=== PATIENT | male | born 1990 | race Caucasian/White ===

== ENCOUNTER 2024-07-02 13:54 | Emergency (ER) | payer SELFPAY ==
[2024-07-02 14:03] VITALS: BP 141/94
--- NOTE | 2024-07-02 14:25 | EDRN ---
Received patient on stretcher. Patient stated that he got hit in the face by a large piece of concrete. +laceration to right eyebrow. +swelling and bruising. Denies LOC and dizziness. +tenderness right eyebrow.
--- NOTE | 2024-07-02 15:23 | ED.SKININJ ---
HPI-Injury
<Mara Coon, JEWELRY STORE MANAGER - Last Filed: 07/03/24 09:12>
General
Chief Complaint: Head Injury
Source: patient
Exam Limitations: none
Time Seen by Provider: 07/02/24 14:34
Nursing documentation reviewed up to this point in time: agreed with
History of Present Illness-Injury
Initial Injury comments:
34-year-old male with no significant past medical history presents with laceration to the right lateral eyebrow. 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 Someone was mowing high grass with a large lawnmower when a softball sized piece of
concrete flew out from the lawnmower striking him in the right upper orbital area. He had an workers compensation manager hard hat on with full face visor and ear protectors on, the impact pushed his hat right off of him. There was no loss of consciousness. Patient
denies eyeball injury, denies change in vision. He is unsure of his last tetanus immunization. He has pain around the area, no general headache. Denies nausea or vomiting.
Past History
<Mara Coon, JEWELRY STORE MANAGER - Last Filed: 07/03/24 09:12>
Past History
ED Past Medical History: None
ED Past Surgical History: Orthopedic (knee/meniscus)
Social History
Tobacco: Non-smoker
Alcohol: Occasional
Personal: Single
Living: with family
Employment: Employed
Review of Systems
<Mara Coon, JEWELRY STORE MANAGER - Last Filed: 07/03/24 09:12>
Review of Systems
Allergies reviewed?: Yes
All Other Systems: ROS reviewed and negative except as documented in HPI and ROS
Cardiac: Denies syncope
ABD/GI: Denies nausea or vomiting
Skin: Reports other (cut right outer eyebrow area)
Neurological: Reports headache (mild pain at the site, no general headache); Denies dizzy, weakness or numbness
Phy Exam
<Mara Coon JEWELRY STORE MANAGER - Last Filed: 07/03/24 09:12>
Physical Exam
Physical Exam:
GENERAL: No acute distress. A&Ox3.
CONSTITUTIONAL: Afebrile.
EYES: PERRL, EOMs intact., clear anterior chamber, good red reflex. conjunctivae normal, eyes clear, normal visual acuity to fingers 5 feet away. Mild to moderate lateral upper eyelid swelling. Tender upper lateral periorbital areas.
Neck: Supple
ENMT: moist mucus membranes, Pharynx nl
RESPIRATORY: Regular respirations, nonlabored, lungs clear.
CARDIOVASCULAR: Regular rate and rhythm, no murmurs, no rubs.
GI: Soft, nontender, normal BS
MUSCULOSKELETAL: Moves with ease. Well perfused.
SKIN: Warm, dry, pink
PSYCH: Normal mood and affect. Well kept, interactive and appropriate
NEUROLOGIC: Awake, alert and oriented. No focal neurological deficits. Ambulating well with steady gait.
Course
<Mara Coon, JEWELRY STORE MANAGER - Last Filed: 07/03/24 09:12>
Orders/Labs/Results
Orders:
Orders
07/02/24 15:29
CT Orbits W/o Iv Contrast Urgent
Comment:
Reason For Exam: R orbital trauma
Acetaminophen [Tylenol] 1,000 mg PO NOW STA
Lidocaine/Epinephrine/Tetracai [Let Topical Anesthetic Gel] 3 ml TOPICAL NOW STA
Tetanus/Diphth/Acelpertussis [Adacel] 0.5 ml IM .ONCE ONE
07/02/24 17:07
CT Head W/o Iv Contrast Urgent
Comment:
Reason For Exam: struck right orbit, ? abnormality seen on orbit ct
07/02/24 18:02
Cephalexin Monohydrate [Keflex] 500 mg PO NOW STA
Vital Signs
Initial and Last Documented VS:
Initial Vital Signs
Temp Pulse Resp BP Pulse Ox
98.3 F 64 18 141/94 98
07/02/24 14:03 07/02/24 14:03 07/02/24 14:03 07/02/24 14:03 07/02/24 14:03
Last Documented Vital Signs
Temp Pulse Resp BP Pulse Ox
98.3 F 60 18 136/86 100
07/02/24 14:03 07/02/24 21:05 07/02/24 21:05 07/02/24 21:05 07/02/24 21:05
General Magistrate consulted with Physician
General Magistrate consulted with physician?: Yes
Name of Physician Consulted: Yoli
<Rita Kent DO - Last Filed: 07/02/24 19:29>
Orders/Labs/Results
Orders:
Orders
07/02/24 15:29
CT Orbits W/o Iv Contrast Urgent
Comment:
Reason For Exam: R orbital trauma
Acetaminophen [Tylenol] 1,000 mg PO NOW STA
Lidocaine/Epinephrine/Tetracai [Let Topical Anesthetic Gel] 3 ml TOPICAL NOW STA
Tetanus/Diphth/Acelpertussis [Adacel] 0.5 ml IM .ONCE ONE
07/02/24 17:07
CT Head W/o Iv Contrast Urgent
Comment:
Reason For Exam: struck right orbit, ? abnormality seen on orbit ct
07/02/24 18:02
Cephalexin Monohydrate [Keflex] 500 mg PO NOW STA
Vital Signs
Initial and Last Documented VS:
Initial Vital Signs
Temp Pulse Resp BP Pulse Ox
98.3 F 64 18 141/94 98
07/02/24 14:03 07/02/24 14:03 07/02/24 14:03 07/02/24 14:03 07/02/24 14:03
Last Documented Vital Signs
Temp Pulse Resp BP Pulse Ox
98.3 F 60 18 136/86 100
07/02/24 14:03 07/02/24 21:05 07/02/24 21:05 07/02/24 21:05 07/02/24 21:05
<Mara Coon JEWELRY STORE MANAGER - Last Filed: 07/03/24 09:12>
MDM/Problems Addressed
Differential Diagnosis Includes:
orbital fracture
MDM/Problems Addressed:
34-year-old male with no significant past medical history presents with laceration to the right lateral eyebrow. Patient owns his own [employer] company. Someone was mowing high grass with a large lawnmower when a softball sized piece of
concrete flew out from the lawnmower striking him in the right upper orbital area. He had an workers compensation manager hard hat on with full face visor and ear protectors on, the impact pushed his hat right off of him. There was no loss of consciousness. Patient
denies eyeball injury, denies change in vision. He is unsure of his last tetanus immunization. He has pain around the area, no general headache. Denies nausea or vomiting.
Laceration sutured, atbx ointment, steri strips applied
5:00 P.m.
IMPRESSION:
There is a small, 5.5 mm cortical fracture fragment at the anterolateral margin of the right orbit, with intact inner cortical margin. No significant displacement. There is associated soft tissue swelling and overlying soft tissue defect/laceration
noted. No radiopaque foreign body.
Subtle indistinct low level increased attenuation suggested superimposed on the inferior lateral right frontal lobe region. Possibly artifactual. However, the possibility of subarachnoid hemorrhage cannot be entirely excluded. Recommend follow-up
head CT.
5:45. p.m.
IMPRESSION:
Small volume acute subarachnoid hemorrhage with epicenter in the region of the right sylvian fissure, highly likely posttraumatic.
Pt remains stable. No change in re evaluation
R orbit fx: No neuro deficits of the face, no visual changes/loss, no eyeball pain, hearing intact to spoken word, no sign of entrapment or optic nn compression.
Since laceration is over the orbit fx, started on antibiotic
SAH: no seizure activity, no neuro deficits
Consulted Neurosurgeon Dr. Lopez who recommends transfer to trauma unit. Recommend holding off on antiseizure meds, 'they'll decide that at [facility].'
Spoke with accepting MD at [facility] Dr. Miranda
Transfer forms filled in and with chart
Dr. Garcia in to examine pt, she will assume care from this point'
Awatiing transport.
Pt remains stable.
<Rita Kent DO - Last Filed: 07/02/24 19:29>
*Critical Care Note
Total Time (30-74mins, 75-104mins- exclusive of procedures): 45
comment:
The high probability of a clinically significant, sudden or life threatening deterioration of the trauma system(s) required my full and direct attention, intervention and personal management. The aggregate critical care time was [] minutes. This
time is in addition to time spent performing reported procedures but includes the following:
[x] Data Review and interpretation
[x] Patient assessment and monitoring of vital signs
[x] Documentation
[x] Medication orders and management
ED Attending Note
<aMra Coon JEWELRY STORE MANAGER - Last Filed: 07/03/24 09:12>
-
Portions of this chart may have been created with voice recognition software.� Occasional wrong word or��sound alike� substitutions may have occurred due to the inherent limitations of voice recognition software.
<Rita Kent DO - Last Filed: 07/02/24 19:29>
ED Attending Note
Patient seen and examined by attending physician: Yes
I performed the substantive portion of visit, reviewed & personally made and approve the management plan that is documented in note by myself or NOEL.: Yes
I performed a history and physical exam of patient and discussed management with resident, I reviewed resident's note and agree with documented findings and plan of care.: Yes
ED Attending Note:
Patient seen and examined at bedside, 34-year-old male without significant past medical history presenting with acute traumatic injury. 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 He was using a device to cut some wood. He did not realize that
there was concrete underneath the wood and a piece of concrete flew from the machine and struck him on the right side of the head. He was wearing protective gear, however the protective gear was struck off of his head. Denies LOC. Patient arrives
with swelling to the right eye. Denies visual changes or issues with eye movement. Notes slight headache. Denies numbness or tingling to extremities or weakness. Vital signs within normal limits.
On evaluation, patient has some ecchymosis to the right eye, however pupils are equal and reactive, extraocular movements intact. No focal neurologic deficits. Patient seen and evaluated by NOEL with appropriate trauma workup. Patient had CT max
face and CT brain, showed subtle possibility of a subarachnoid hemorrhage. In discussion with neurosurgery, recommending transfer to trauma center. Arranges made for transfer to [facility]. Patient is otherwise hemodynamically stable, again
neurologically intact. Patient stable for transfer.
Discharge Plan
Departure
Patient Disposition: Acute Care Hospital
Date of Disposition: 07/02/24
Time of Disposition: 18:37
Condition: Fair
Discharge Problem:
Subarachnoid bleed, Fracture of right orbit, Laceration of left eyebrow
Referrals:
Fabio Quinones CRNP [Family Provider] -
Hospital Transfer
Other hospital: [facility]
I certify that the patient requires transfer: Yes
Discussed case with accepting physician: Ruth
Reason for transfer: higher level of care
Interventions
Interventions:
*Risk Screen - Suicide Last Done: 07/02/24 14:03
*General Assessment Last Done: 07/02/24 14:03
*Neglect/Abuse Screening Last Done: 07/02/24 14:03
ED- Fall Risk Assessment Last Done: 07/02/24 14:21
*ED COVID-19 Vaccine History Last Done: 07/02/24 14:21
*Nursing Disposition Last Done: 08/06/24 21:04
ED- Neurological Assessment Last Done: 07/02/24 21:05
ED-Skin Assessment Last Done: 07/02/24 14:21
Discharge Date and Time
Discharge Date/Time: 07/02/24 21:06
Print Language: [place]
[2024-07-02] MEDS: LET TOPICAL ANESTHETIC GEL 3 ML TOPICAL (15:52)
[2024-07-02] MEDS: TYLENOL 1000 MG PO (15:52)
[2024-07-02] MEDS: ADACEL 0.5 ML IM (15:53)
[2024-07-02 16:00] VITALS: BMI 27.2
[2024-07-02 17:19] VITALS: BP 157/82
[2024-07-02] MEDS: KEFLEX 500 MG PO (18:42)
--- NOTE | 2024-07-02 19:02 | EDRN ---
Patient moved from P1 to room 32. Report called to SUAD Cannon at [facility] ([phone]). Arrangements being made for transport. Patient remains AAOx4.
[2024-07-02 20:05] VITALS: BP 137/93
[2024-07-02 21:05] VITALS: BP 136/86
== END 2024-07-02 21:06 | disposition short-term general hospital (02) ==
LOC: EMR 13:54
PROVIDERS: EMERGENCY PHYSICIAN Student in an Organized Health Care Education/Training Program; FAMILY PHYSICIAN Nurse Practitioner Adult Health
DX: S06.6XAA Traumatic subarachnoid hemorrhage with loss of consciousness status unknown, initial encounter (principal); S02.85XA Fracture of orbit, unspecified, initial encounter for closed fracture; S01.112A Laceration without foreign body of left eyelid and periocular area, initial encounter; W22.09XA Striking against other stationary object, initial encounter; Z23 Encounter for immunization
CPT/HCPCS: 99284; 90471; 70450; 70480; 90715

== ENCOUNTER → 2024-07-15 08:46 | Outpatient (REF) | payer SELFPAY | LOC: RAD 08:46 | PROVIDERS: ATTENDING PHYSICIAN Physician Assistant Medical; FAMILY PHYSICIAN Nurse Practitioner Adult Health | DX: I60.9 Nontraumatic subarachnoid hemorrhage, unspecified (principal); S06.89AA Other specified intracranial injury with loss of consciousness status unknown, initial encounter | CPT/HCPCS: 70450 ==